=== PATIENT | female | born 2000 | race Caucasian/White ===

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

== ENCOUNTER 2020-01-04 20:28 | Inpatient (IN) | payer BC, MEDICAID ==
[2020-01-04] MEDS ORDERED: Buffered Lidocaine 1% SYRIN* 1 ML/SYRINGE INTRADERM ONE (21:44)
[2020-01-04] MEDS ORDERED: Lactated Ringers 1000 ML Bag* 1,000 ML IV ONE ×2 (21:44→22:17)
[2020-01-04 21:46] LABS: ABS Eosinophils 0.1 10^3/ul (0-0.6); ABS Lymphocytes 1.7 10^3/ul (1.0-4.8); ABS Monocytes 0.8 10^3/ul (0-0.8); ABS Neutrophils 9.7 10^3/ul (1.5-7.7); Eosinophil % 0.6 %; Hematocrit 35 % (35-47); Hemoglobin 11.7 g/dL (12.0-16.0); Lymphocyte % 13.8 %; Mean Corpuscular HGB Conc 33 g/dL (31-36); Mean Corpuscular Hemoglobin 28 pg (27-31); Mean Corpuscular Volume 85 fL (80-97); Platelet Count 201 10^3/uL (150-450); Red Blood Count 4.14 10^6 /uL (3.70-4.87); Red Cell Distribution Width 14 % (10-15); White Blood Count 12.4 10^3/uL (3.5-10.8)
[2020-01-04] MEDS ORDERED: OBEPIDURAL* 250 ML EPIDURAL ONE (21:47)
[2020-01-04] MEDS ORDERED: Bupivacaine 0.25% SDV PF* 10 ML VIAL INJ ONE (21:53)
[2020-01-04 22:02] LABS: Urine Benzodiazepine Screen None Detected (None Detect); Urine Opiates Screen None Detected (None Detect)
[2020-01-04] MEDS ORDERED: Phenylephrine 40 MCG/ML SYRINGE IV PUSH PRN (22:17)
[2020-01-04] MEDS ORDERED: EPHEDrine (Pressors)* 50 MG/ML VIAL IV PUSH PRN (22:17)
[2020-01-04] MEDS ORDERED: Famotidine TAB* 20 MG PO PRN (22:17)
[2020-01-04] MEDS ORDERED: Sodium Citrate/Citric Acid* 15 ML UDC PO PRN (22:17)
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
[2020-01-04] MEDS ORDERED: OBEPIDURAL* 250 ML EPIDURAL SCH (23:00)
[2020-01-04] MEDS ORDERED: Lactated Ringers 1000 ML Bag* 1,000 ML IV SCH (23:00)
[2020-01-05] MEDS ORDERED: Oxytocin in LR* 20 UNITS/1,000 ML BAG IVPB ONE (02:33)
[2020-01-05] MEDS ORDERED: Dibucaine 1% 28.35 GM TUBE PR PRN (02:55)
[2020-01-05] MEDS ORDERED: Witch Hazel PAD* JAR TOPICAL PRN (02:55)
[2020-01-05] MEDS ORDERED: Glycerin ADULT SUPP PR PRN (02:55)
[2020-01-05] MEDS ORDERED: Lactated Ringers 1000 ML Bag* 1,000 ML IV SCH (03:00)
[2020-01-05] MEDS ORDERED: Oxytocin in LR* 20 UNITS/1,000 ML BAG IVPB SCH (03:00)
--- NOTE | 2020-01-05 03:03 | PROCNOTE ---
[facility] OB: Delivery Note - Delivery A Date of : 01/05/20 Time of : 02:29 Reynolds Sex: Female Score 1 Minute: 9 Score 5 Minutes: 9 Gestational Age in Weeks and Days at Delivery: 40 Weeks and 0 Days Delivery Method: Spontaneous Vaginal Labor: Spontaneous Did Patient attempt ?: N/A, No Previous Amniotic Fluid: Clear Estimated Blood Loss: 400 Anesthesia/Analgesia: CEI for Labor Anesthesia Comment: [place] Delivered By: Jailyn Brown - Nursery Level of Nursery: Regular/Bedside - Perineum Perineal Injury: Abrasion Only - Not Repaired Perineal Repair: None - Events Delivery Events of Note: Pitocin Only After Delivery - Additional Delivery Notes Additional Delivery Notes: in spontaneous labor received CEI per preference with good relief. SROM to clear fluid and progression to complete and complete. Began pushing with good maternal effort at 0202. Slow controlled delivery of head OA to OZ. Tight nuchal x 1, infant somersaulted through. Female delivered to maternal abdomen, HR > 110, vigorous. Dried and stimulated. Apgars 9 and 9. Cord clamped x 2 and cut by specialist physicians once pulsations ceased. Pitocin IV initiated for active management of third stage of labor. Placenta delivered via rangel, trailing membranes teased out with ring forceps. Fundus firm with massage. Perineum and vagina carefully inspected, perineum intact with small hemostatic abrasion at introitus, no repair necessary. Mother and baby stable at time of note, plan to breast feed. EBL = 400 cc.
[2020-01-05] MEDS ORDERED: Simethicone TAB* 80 MG TAB.CHEW PO SCH (08:30)
[2020-01-05] MEDS: Docusate CAP* 100 MG PO SCH ×3 (09:18→20:37)
[2020-01-05] MEDS: Ibuprofen TAB* 600 MG PO PRN ×2 (09:18→15:18)
[2020-01-05] MEDS: Acetaminophen TAB* 325 MG PO PRN (20:37)
[2020-01-06 05:47] LABS: ABS Basophils 0.1 10^3/ul (0-0.2); ABS Eosinophils 0.2 10^3/ul (0-0.6); ABS Monocytes 0.9 10^3/ul (0-0.8); ABS Neutrophils 8.6 10^3/ul (1.5-7.7); Eosinophil % 1.4 %; Hematocrit 34 % (35-47); Hemoglobin 11.6 g/dL (12.0-16.0); Lymphocyte % 23.8 %; Mean Corpuscular HGB Conc 34 g/dL (31-36); Mean Corpuscular Hemoglobin 29 pg (27-31); Mean Corpuscular Volume 85 fL (80-97); Mean Platelet Volume 9.2 fL (7.4-10.4); Platelet Count 172 10^3/uL (150-450); Red Blood Count 3.96 10^6 /uL (3.70-4.87); Red Cell Distribution Width 14 % (10-15); White Blood Count 12.7 10^3/uL (3.5-10.8)
[2020-01-06] MEDS ORDERED: Ferrous Gluconate TAB* 324 MG TAB PO SCH (09:00)
[2020-01-06] MEDS: Docusate CAP* 100 MG PO SCH ×3 (09:16→19:38)
[2020-01-06] MEDS: Acetaminophen TAB* 325 MG PO PRN ×2 (14:48→19:38)
[2020-01-07 07:56] VITALS: BP 134/80
[2020-01-07] MEDS: Docusate CAP* 100 MG PO SCH (07:59)
== END 2020-01-07 11:45 | disposition home or self-care (01) | DRG 560 ==
LOC: MCHOBOUT 20:28 → MCHOB 21:20
PROVIDERS: ADMIT Midwife; ATTEND Midwife
PROC: 10E0XZZ Delivery of Products of Conception, External Approach (ICD-10-PCS; principal; 2020-01-05)
DX: O75.89 Other specified complications of labor and delivery (principal); Z37.0 Single live birth; O99.344 Other mental disorders complicating childbirth; F41.8 Other specified anxiety disorders; O69.81X0 Labor and delivery complicated by cord around neck, without compression, not applicable or unspecified; Z3A.40 40 weeks gestation of pregnancy; Q05.9 Spina bifida, unspecified
CPT/HCPCS: 36415; 80307; 85025; 86850; 86900; 86901; A9270-GY; G0480; J3490